=== PATIENT | male | born 1985 | race Two or more races ===

== ENCOUNTER 2017-04-25 11:28 | Emergency (ER) | payer OTHER ==
[~2017-04-25] VITALS: Ht 172.7 cm; Wt 77.1 kg
--- NOTE | 2017-04-25 11:35 | NUR ---
A/OX4, C/O CHEST HEAVINESS AND LT ARM NUMBNESS X YESTERDAY. BP IS HIGH. GOWNED AND PLACED ON CONT MONITORING, STAT EKG ORDERED. ALL NEEDS ARE ATTENDED, KEPT WARM AND COMFORTABLE. DR MIDDLETON NOTIFIED
[2017-04-25 12:03] LABS: BASOPHILS % (AUTO) 0.4 % (0.0-2.0); EOSINOPHILS # (AUTO) 0.1 /CMM (0.0-0.7); HEMATOCRIT 48 % (39-51); LYMPHOCYTES # (AUTO) 1.3 /CMM (0.8-4.8); LYMPHOCYTES % (AUTO) 26.3 % (20.0-44.0); MEAN CORPUSCULAR HEMOGLOBIN 28 PG (26.0-33.0); MEAN CORPUSCULAR HGB CONC 33 g/dl (31.0-36.0); MEAN CORPUSCULAR VOLUME 85 fL (80-96); MONOCYTES # (AUTO) 0.4 /CMM (0.1-1.30); MONOCYTES % (AUTO) 8.3 % (2.0-12.0); NEUTROPHILS # (AUTO) 3.2 /CMM (1.8-8.9); PLATELET COUNT (AUTO) 232 /CMM (150-450); RDW COEFFICIENT OF VARIATION 11.4 (11.5-15.0); RED BLOOD CELL COUNT(AUTO) 5.64 MIL/uL (4.5-6.0)
--- NOTE | 2017-04-25 12:14 | NUR ---
EKG DUPLICATE ORDER
[2017-04-25 12:18] LABS: ALANINE AMINOTRANSFERASE 45 U/L (12-78); ALBUMIN 4.1 g/dL (3.4-5.0); ALKALINE PHOSPHATASE 61 U/L (46-116); ASPARTATE AMINOTRANSFERASE 38 U/L (15-37); BILIRUBIN,DIRECT 0.1 mg/dL (0.0-0.2); BILIRUBIN,TOTAL 0.6 mg/dL (0.2-1.0); CALCIUM, SERUM 9.3 mg/dL (8.5-10.1); CARBON DIOXIDE 28 mmol/L (21-32); CREATININE 1.1 mg/dL (0.6-1.3); GLUCOSE 100 mg/dL (74-106); TOTAL PROTEIN, SERUM 7.7 g/dL (6.4-8.2); UREA NITROGEN, BLOOD 11 mg/dL (7-18)
[2017-04-25 12:20] LABS: TROPONIN I < 0.017 ng/mL (0.00-0.056)
--- NOTE | 2017-04-25 13:24 | NUR ---
IV removed. Catheter intact and site benign. Pressure and 4x4 applied to site. No bleeding noted.Patient discharged to home in stable condition. Written and verbal after care instructions given. Patient verbalizes understanding of instruction.
[2017-04-25 13:25] VITALS: BP 135/88
[2017-04-25 13:36] LABS: CHLORIDE 103 mmol/L (98-107); POTASSIUM 3.9 mmol/L (3.5-5.1); SODIUM SERUM 141 mmol/L (136-145)
== END 2017-04-25 13:26 | disposition home or self-care (01) ==
LOC: ER 11:30
DX: R07.89 Other chest pain (principal)
CPT/HCPCS: 36415; 71010; 80048; 80076; 84484; 85025; 93005 ×2; 99285; A4606; Z7610